=== PATIENT | male | born 1940 | race Caucasian/White ===

== ENCOUNTER 2017-04-13 17:24 | Emergency (ER) | payer OTHER ==
[2017-04-13 17:34] VITALS: RESP 18
[2017-04-13] MEDS ORDERED: HYDROmorphONE/DILAUDID 1 MG/ML INJ IVP ONE (17:48)
[2017-04-13] MEDS ORDERED: NS 1,000 ML IV ONE (17:48)
--- NOTE | 2017-04-13 17:50 | EDPHY ---
H & P Stated Complaint: fell sunday l rib inj seen [facility] +rib fx/pneumo/pna Time Seen by Provider: 04/13/17 17:35 HPI/ROS: CHIEF COMPLAINT: Rib fracture HISTORY OF PRESENT ILLNESS: The patient is a 76-year-old man who slipped on ice on Sunday and fell onto his left side onto a rock. He had severe pain immediately. He has been taking ibuprofen and Tylenol since but this has not been adequate. Today he presented to an urgent care who performed an x-ray and told him that he had a rib fracture and pneumothorax and possibly pneumonia. However on the transfer sheet they wrote that he has a rib fracture and possibly pneumothorax and they did not mention pneumonia. He has not had a fever or cough. He does have significant pain with deep inspiration or movement. His primary complaint is pain control. He denies other injuries to his extremities, head or neck. REVIEW OF SYSTEMS: Constitutional: denies: chills, fever, recent illness, recent injury EENTM: denies: blurred vision, double vision, nose congestion Respiratory: See HPI Cardiac: denies: chest pain, irregular heart rate, lightheadedness, palpitations Gastrointestinal/Abdominal: denies: abdominal pain, diarrhea, nausea, vomiting, blood streaked stools Genitourinary: denies: dysuria, frequency, hematuria, pain Musculoskeletal: denies: joint pain, muscle pain Skin: denies: lesions, rash, jaundice, bruising Neurological: denies: headache, numbness, paresthesia, tingling, dizziness, weakness Hematologic/Lymphatic: denies: blood clots, easy bleeding, easy bruising Immunologic/allergic: denies: HIV/AIDS, transplant EXAM: GENERAL: Well-appearing, well-nourished and in no acute distress. HEAD: Atraumatic, normocephalic. EYES: Pupils equal round and reactive to light, extraocular movements intact, sclera anicteric, conjunctiva are normal. ENT: TMs normal, nares patent, oropharynx clear without exudates. Moist mucous membranes. NECK: Normal range of motion, supple without lymphadenopathy or JVD. LUNGS: Breath sounds clear to auscultation bilaterally and equal. No wheezes rales or rhonchi. Left-sided exquisite tenderness anterior ribs HEART: Regular rate and rhythm without murmurs, rubs or gallops. ABDOMEN: Soft, nontender, normoactive bowel sounds. No guarding, no rebound. No masses appreciated. BACK: No CVA tenderness, no spinal tenderness, step-offs or deformities EXTREMITIES: Normal range of motion, no pitting or edema. No clubbing or cyanosis. NEUROLOGICAL: Cranial nerves II through XII grossly intact. Normal speech, normal gait. 5/5 strength, normal movement in all extremities, normal sensation PSYCH: Normal mood, normal affect. SKIN: Warm, dry, normal turgor, no visible rashes or lesions. Source: Patient Exam Limitations: No limitations - Personal History Current Tetanus/Diphtheria Vaccine: Unsure - Medical/Surgical History Hx Asthma: No Hx Chronic Respiratory Disease: No Hx Diabetes: Yes Hx Cardiac Disease: No Hx Renal Disease: No Hx Cirrhosis: No Hx Alcoholism: No Hx HIV/AIDS: No Hx Splenectomy or Spleen Trauma: No Other PMH: recovering alcoholic - Family History Significant Family History: No pertinent family hx - Social History Smoking Status: Former smoker Alcohol Use: Sober Drug Use: None Constitutional: Initial Vital Signs Temperature (C) 36.5 C 04/13/17 17:29 Heart Rate 56 L 04/13/17 17:29 Respiratory Rate 18 04/13/17 17:29 Blood Pressure 141/78 H 04/13/17 17:29 O2 Sat (%) 97 04/13/17 17:29 O2 Delivery Mode Room Air Allergies/Adverse Reactions: No Known Allergies Allergy (Verified 04/13/17 17:28) Home Medications: Medication Instructions Recorded Levothyroxine 04/13/17 oxyCODONE/APAP 5/325 [Percocet 1 - 2 tab PO Q4H PRN #20 tab 04/13/17 5/325 (*)] Medical Decision Making - Diagnostics Imaging Results: Imaging Impressions Chest X-Ray 04/13/17 17:48 Impression: 1. Left 10th rib fracture slightly displaced. 2. Minimal left pleural effusion and patchy left lower lobe pulmonary contusion or atelectasis. 3. No definite pneumothorax. Imaging: Discussed imaging studies w/ banquet server on call Radiologist ED Course/Re-evaluation: 7:20 p.m. the patient is feeling better but not yet great. He is requesting to go home with Percocet. I will give him a take-home pack as well as prescription. We also discussed recent studies stating that splinting with Riaz wrap can be beneficial and does not typically cause pneumonia. He would like to try this. His vital signs are reassuring pre clinically I think he will do well. He does have a small pulmonary contusion but his injuries already 5-day- old. Differential Diagnosis: Partial list of the Differential diagnosis considered include but were not limited to; rib fracture, pulmonary contusion, muscle strain, pneumothorax and although unlikely based on the history and physical exam, I also considered pneumonia, hemorrhage. I discussed these differential diagnoses and the plan with the patient as well as the usual and expected course. The patient understands that the diagnosis is provisional and that in medicine we are not always correct and that further workup is often warranted. Usual and customary warnings were given. All of the patient's questions were answered. The patient was instructed to return to the emergency department should the symptoms at all worsen or return, otherwise to followup with the physician as we discussed. - Data Points Laboratory Results: Laboratory Results 04/13/17 17:57 04/13/17 17:57 04/13/17 04/13/17 17:57 17:57 WBC 7.65 10^3/uL 10^3/uL (3.80-9.50) RBC 4.94 10^6/uL 10^6/uL (4.40-6.38) Hgb 16.4 g/dL g/dL (13.7-17.5) Hct 46.5 % % (40.0-51.0) MCV 94.1 fL fL (81.5-99.8) MCH 33.2 pg pg (27.9-34.1) MCHC 35.3 g/dL g/dL (32.4-36.7) RDW 12.3 % % (11.5-15.2) Plt Count 173 10^3/uL 10^3/uL (150-400) MPV 9.1 fL fL (8.7-11.7) Neut % (Auto) 73.3 % % (39.3-74.2) Lymph % (Auto) 12.4 % L % (15.0-45.0) [place] % (Auto) 9.5 % % (4.5-13.0) Eos % (Auto) 3.8 % % (0.6-7.6) Baso % (Auto) 0.5 % % (0.3-1.7) Nucleat RBC Rel Count 0.0 % % (0.0-0.2) Absolute Neuts (auto) 5.60 10^3/uL 10^3/uL (1.70-6.50) Absolute Lymphs (auto) 0.95 10^3/uL L 10^3/uL (1.00-3.00) Absolute Monos (auto) 0.73 10^3/uL 10^3/uL (0.30-0.80) Absolute Eos (auto) 0.29 10^3/uL 10^3/uL (0.03-0.40) Absolute Basos (auto) 0.04 10^3/uL 10^3/uL (0.02-0.10) Absolute Nucleated RBC 0.00 10^3/uL 10^3/uL (0-0.01) Immature Gran % 0.5 % % (0.0-1.1) Immature Gran # 0.04 10^3/uL 10^3/uL (0.00-0.10) Sodium 140 mEq/L mEq/L (134-144) Potassium 4.1 mEq/L mEq/L (3.5-5.2) Chloride 103 mEq/L mEq/L (97-110) Carbon Dioxide 23 mEq/l mEq/l (22-31) Anion Gap 14 mEq/L mEq/L (8-16) BUN 22 mg/dL mg/dL (7-23) Creatinine 0.8 mg/dL mg/dL (0.7-1.3) Estimated GFR > 60 Glucose 79 mg/dL mg/dL (70-100) Calcium 9.7 mg/dL mg/dL (8.5-10.4) Medications Given: Discontinued Medications Hydromorphone HCl (Dilaudid) 1 mg IVP EDNOW ONE Stop: 04/13/17 17:49 Last Admin: 04/13/17 18:00 Dose: 1 mg Sodium Chloride (Ns) 1,000 mls @ 0 mls/hr IV ONCE ONE; Wide Open PRN Reason: Protocol Stop: 04/13/17 17:49 Last Admin: 04/13/17 18:00 Dose: 1,000 mls Ketorolac Tromethamine (Toradol) 30 mg IVP EDNOW ONE Stop: 04/13/17 18:46 Last Admin: 04/13/17 18:50 Dose: 30 mg Oxycodone/Acetaminophen (Percocet 5/325mg Prepack#4) 1 btl TAKESARINA EDNOW ONE Stop: 04/13/17 19:27 Last Admin: 04/13/17 19:46 Dose: 1 btl Departure - Departure Disposition: Home, Routine, Self-Care Clinical Impression: Left rib fracture Qualifiers: Encounter type: initial encounter Rib fracture type: single rib Fracture type: closed Qualified Code(s): S22.32XA - Fracture of one rib, left side, initial encounter for closed fracture Condition: Fair Instructions: Oxycodone/Acetaminophen (By mouth), Rib Fracture (ED) Referrals: Stefano Mims MD [Primary Care Provider] - As per Instructions Prescriptions: oxyCODONE/APAP 5/325 [Percocet 5/325 (*)] 1 - 2 tab PO Q4H PRN #20 tab PRN Reason: Pain, Severe
[2017-04-13 18:04] LABS: PLATELET COUNT 173 10^3/uL (150-400)
[2017-04-13] MEDS ORDERED: KETOROLAC 30 MG/1 ML SDV IVP ONE (18:45)
[2017-04-13] MEDS ORDERED: OXYCODONE/APAP 5/325MG PREPACK#4 BTL TAKEHOME ONE (19:26)
[2017-04-13 19:55] VITALS: BP 128/72; PULSE 78; TEMP 98.1; O2SAT 93
== END 2017-04-13 19:55 | disposition home or self-care (01) ==
PROC: 3E0337Z Introduction of Electrolytic and Water Balance Substance into Peripheral Vein, Percutaneous Approach (ICD-10-PCS; principal; 2017-04-13)
DX: S22.32XA Fracture of one rib, left side, initial encounter for closed fracture (principal); E11.9 Type 2 diabetes mellitus without complications; E86.9 Volume depletion, unspecified; Z87.891 Personal history of nicotine dependence; W00.0XXA Fall on same level due to ice and snow, initial encounter
CPT/HCPCS: 71046; 96361; 96374; 96375; 99284; J1170; J1885

== ENCOUNTER → 2017-06-26 | Outpatient (CLI) | payer OTHER | LOC: FCPNEURO 23:19 | PROVIDERS: ATTEND Psychiatry & Neurology Sleep Medicine | DX: G47.39 Other sleep apnea (principal); G47.31 Primary central sleep apnea ==